=== PATIENT | female | born 1985 | race Caucasian/White ===

== ENCOUNTER 2016-10-04 21:22 | Emergency (ER) | payer MEDICAID ==
[~2016-10-04] VITALS: Ht 172.7 cm; Wt 67.5 kg
[~2016-10-04 21:22] MED LIST: CEPH500C PO; METO-448 PO
[2016-10-04 21:28] VITALS: Ht 172.7 cm; Wt 67.5 kg
[2016-10-04] MEDS ORDERED: KETOROLAC 60 MG INJ IM STA (22:17)
[2016-10-04] MEDS ORDERED: PHENAZOPYRIDINE 100 MG TAB PO ONE (22:30)
--- NOTE | 2016-10-04 22:31 | ERD ---
ER Documentation Chief Complaint Date/Time DATE: 10/04/16 TIME: 22:19 Chief Complaint Pt with AP x 3 days, blood in urine X 1 day, pt feeling dizzy. HPI 31-year-old female presents here in emergency department for complaints of suprapubic pain, dysuria and hematuria. Patient complaining of suprapubic pain, cramping pain, 4/10 scale, is accompanied with dysuria and hematuria. Patient denies any flank pain. Patient denies any nausea or vomiting. Patient denies any fever or chills. Patient denies any flank pain. Patient does not have any upper abdominal pain. Patient did not take medications of symptoms. ROS All systems reviewed and are negative except as per history of present illness. Medications Home Meds Active Scripts Metoprolol Tartrate* (Lopressor*) 25 Mg Tab, 12.5 MG PO BID, #60 TAB Prov:SANDY JAMESBoby DO 11/20/15 Reported Medications Cephalexin* (Cephalexin*) 500 Mg Capsule, 500 MG PO QID, CAP 11/19/15 Allergies Allergies: Coded Allergies: No Known Drug Allergies (Verified Allergy, Mild, 11/19/15) PMhx/Soc Medical and Surgical Hx: pt denies Medical Hx, pt denies Surgical Hx History of Surgery: No Anesthesia Reaction: No Hx Neurological Disorder: No Hx Respiratory Disorders: No Hx Cardiac Disorders: No Hx Psychiatric Problems: No Hx Miscellaneous Medical Probl: No Hx Alcohol Use: No Hx Substance Use: No Hx Tobacco Use: No Smoking Status: Never smoker FmHx Family History: No coronary disease, No diabetes, No other Physical Exam Vitals Vital Signs Date Time Temp Pulse Resp B/P Pulse Ox O2 Delivery O2 Flow Rate FiO2 10/04/16 21:28 98.0 74 18 122/60 100 Physical Exam GENERAL: The patient is well developed and appropriate for usual state of health, in no apparent distress. CHEST: Clear to auscultation bilaterally. There are no rales, wheezes or rhonchi. HEART: Regular rate and rhythm. No murmurs, clicks, rubs or gallops. No S3 or S4. ABDOMEN: Soft, nontender and nondistended. Good bowel sounds. No rebound or guarding. No gross peritonitis. No gross organomegaly or masses. No Aranda sign or McBurney point tenderness. BACK: No midline or flank tenderness. EXTREMITIES: Equal pulses bilaterally. There is no peripheral clubbing, cyanosis or edema. No focal swelling or erythema. Full range of motion. Grossly neurovascularly intact. NEURO: Alert and oriented. Cranial nerves 2-12 intact. Motor strength in all 4 extremities with 5/5 strength. Sensation grossly intact. Normal speech and gait. SKIN: There is no apparent rash or petechia. The skin is warm and dry. HEMATOLOGIC AND LYMPHATIC: There is no evidence of excessive bruising or lymphedema. No gross cervical, axillary, or inguinal lymphadenopathy. Results 24 hrs Laboratory Tests Test 10/04/16 22:32 Bedside Urine Blood 3+ Bedside Urine Glucose (UA) Negative Bedside Urine Ketones (LAB) Negative Bedside Urine Leukocyte Esterase (L 2+ Bedside Urine Nitrite (LAB) Negative Bedside Urine Protein (LAB) Trace Bedside Urine pH (LAB) 7.0 Current Medications Medications (Trade) Dose Ordered Sig/Juan Route PRN Reason Start Time Stop Time Status Last Admin Dose Admin Ketorolac Tromethamine (Toradol) 60 mg ONCE STAT IM 10/04/16 22:17 10/04/16 22:18 DC Phenazopyridine HCl (Pyridium) 200 mg ONCE ONCE PO 10/04/16 22:30 10/04/16 22:31 DC Patient was given medication for pain here in emergency department, after treatment, patient verbalized feeling much better. Patient's pain is improved. Procedures/MDM Medical Decision Making: Patients symptoms are consistent with urinary tract infection. There is low suspicion for pyelonephritis. There is low suspicion for abdominal emergencies at this time. Patients abdominal exam is normal. There is low suspicion for sepsis. Patient appears well and is hemodynamically stable. Patient was given for Pyridium, ciprofloxacin, tramadol for severe pain , patient was advised to drink a lot of water and rest, does good perineal hygiene, patient was advised to take medications as prescribed. Patient was advised to follow with primary care doctor in 2-3 days. Patient is advised to return to emergency department for any worsening symptoms. Departure Diagnosis: Primary Impression: UTI (urinary tract infection) Urinary tract infection type: acute cystitis Hematuria presence: with hematuria Qualified Code: N30.01 - Acute cystitis with hematuria Condition: Stable Patient Instructions: CystELEAZAR Khalil NP Oct 04, 2016 22:30
[2016-10-04 22:32] LABS: URINE BLOOD (Dip) POC 3+ (NEGATIVE)
[2016-10-04] MEDS ORDERED: CIPR500T4 PO (23:05)
[2016-10-04] MEDS ORDERED: PHEN-538 PO (23:05)
[2016-10-04] MEDS ORDERED: ULT50 PO (23:05)
== END 2016-10-04 23:48 | disposition home or self-care (01) ==
LOC: FTE 21:22
DX: N30.01 Acute cystitis with hematuria (principal)
CPT/HCPCS: 81003; 96372; J1885; Z7502; Z7610